=== PATIENT | female | born 1965 | race Caucasian/White ===

== ENCOUNTER 2018-06-22 15:58 | Inpatient (IN) | payer BC ==
[~2018-06-22] VITALS: Ht 172.7 cm; Wt 66.7 kg
--- NOTE | ~2018-06-22 | DS ---
[facility] [address], [place] [address] Draft ADMISSION DATE: 06/22/2018 DISCHARGE DATE: 06/25/2018 REASON FOR ADMISSION: This 53-year-old white woman has had pain in the right lower abdomen for the past 48 hours, and 2 days prior to that, vague abdominal pain with nausea and vomiting. She presented to the emergency room where she was thoroughly evaluated by Dr. Cordero and found to have generalized peritonitis with maximum tenderness at McBurney point. A CT scan was performed, which showed a large fecalith, severe periappendiceal inflammation, and significant inflammatory mass. She is admitted for further evaluation and care. PERTINENT PHYSICAL EXAMINATION: GENERAL: Showed a tall woman in marked discomfort. She did not appear systemically toxic, but quite uncomfortable. She is accompanied by family members. She had a temperature of 100.3, blood pressure 107/68, respirations 16, pulse 104. Mucous membranes are dry. CHEST: Clear. HEART: Regular. ABDOMEN: Nondistended with marked tenderness throughout the abdomen, most dominantly in the right lower abdomen. Marked guarding was noted. LABORATORY DATA: Her white count was 14.5, hematocrit 37.2, potassium 3.4, glucose 112, lipase 5. Urinalysis, trace leukocyte esterase. HOSPITAL COURSE: She was fluid resuscitated and given the acuity of her symptoms, she was taken to the operating room relatively late at night. At operation with relaxation of the abdominal wall palpation revealed a firm mass in the right lower quadrant. Laparoscopy was performed, which showed an intensely adherent cecum to the right lateral abdominal wall. This was taken down with blunt dissection revealing abscess. Abscess was drained and Gram stain and cultures were obtained of the fluid. The cultures ultimately did grow E coli. Sensitivities showed resistance to Bactrim, tetracycline, and ampicillin, but sensitive to amoxicillin clavulanate. A drain was placed in the abscess cavity and with difficulty complete appendectomy performed as well, confirming a gangrenous appendix with perforation. Postoperatively, she was markedly improved regarding her symptoms. She was maintained on antibiotic Zosyn and ultimately transitioned to Cipro and Flagyl. She had PATIENT NAME: NANETTE MARIE DISCHARGE SUMMARY DATE OF : 67 REPORT #: [id number] PHYSICIAN: REESE GARDUNO MD PCP: DEVON RILEY NP REPORT IS CONFIDENTIAL AND NOT TO BE RELEASED WITHOUT AUTHORIZATION [facility] [address], [place] [address] Draft progressive improvement in the drainage cleared largely, though was still slightly turbid at time of discharge, and on that basis, it will be left in place. She is tolerating a regular diet well. She is not too tolerant of any opiate medication and is finding best relief with plain Motrin. FOLLOWUP PLAN: She is to return to see me in a week or so, at which time the drain would likely be able to be removed so long as the drainage fluid is clear. She is asked to walk on a daily basis and to avoid lifting more than 20 pounds for the next 2 weeks. DISCHARGE MEDICATIONS: Include, 1. Cipro 500 mg p.o. b.i.d. #10. 2. Flagyl 250 mg p.o. t.i.d. #15. 3. Motrin 600 mg p.o. q.6 hours p.r.n. pain #60. To restart medications, 1. Marcella Thyroid 120 mg tablet at bedtime. 2. Cyclobenzaprine (Flexeril) 10 mg p.o. h.s. for muscle spasm. 3. Baclofen 5 mg p.o. 3 tabs h.s. for muscle spasm. DISCHARGE DIAGNOSES: 1. Intraabdominal abscess secondary to perforated appendicitis, status post laparoscopic drainage of abscess. 2. Perforated appendicitis, status post laparoscopic appendectomy. 3. Hypothyroidism. 4. History of back spasms. MD PRANAY Winchester/NOAHL /[id number] cc: Arthur Cordero Copies: ARTHUR CORDERO PATIENT NAME: NANETTE MARIE DISCHARGE SUMMARY DATE OF : 67 REPORT #: [id number] PHYSICIAN: REESE GARDUNO MD PCP: DEVON RILEY NP REPORT IS CONFIDENTIAL AND NOT TO BE RELEASED WITHOUT AUTHORIZATION [facility] [address] [place] [address] [place], [place] [address] Draft ~ PATIENT NAME: NANETTE MARIE DISCHARGE SUMMARY DATE OF : 67 REPORT #: [id number] PHYSICIAN: REESE GARDUNO MD PCP: DEVON RILEY NP REPORT IS CONFIDENTIAL AND NOT TO BE RELEASED WITHOUT AUTHORIZATION
--- NOTE | ~2018-06-22 | OR ---
[facility] [address] [place], [place] [address] Draft DATE OF OPERATION: 06/22/2018 SURGEON: Reese Garduno MD PREOPERATIVE DIAGNOSIS: Acute appendicitis with peritonitis. POSTOPERATIVE DIAGNOSES: 1. Abdominal abscess, posterolateral cecal area, dense adhesion of cecum to the anterolateral abdominal wall. 2. Gangrenous appendicitis with perforation. PROCEDURE: 1. Laparoscopic drainage of pericecal abscess. 2. Laparoscopic appendectomy. 3. Placement of drain with lavage of abdomen. ANESTHESIA: General endotracheal, Linda Brown, REPAIR SERVICE CLERK and local 20 mL of 0.25% Marcaine with epinephrine. DRAIN: 7 mm Alhaji. INDICATION: A 53-year-old white woman, who has had pain in the abdomen in the right lower area for the past 48 hours and two days prior to that, vague abdominal pain and nausea and vomiting, today is Saturday, notably. She presented to the emergency room, where she was thoroughly evaluated by Dr. Cordero, found to have generalized peritonitis, maximal tenderness at McBurney's point. A CT scan of the abdomen showed a fecalith, severe periappendiceal inflammation. She has been fluid resuscitated, given intravenous antibiotics, and is now to undergo appendectomy, preferred by laparoscopic approach. The risks of bleeding, infection, need for open procedure and other unforeseen complications were reviewed in detail. She understands and wished to proceed. FINDINGS: Once the patient was anesthetized, abdominal palpation revealed a dense mass in the right lower abdomen. This was highly concerning for probable abscess. Laparoscopic evaluation demonstrated densely adherent cecum to anterolateral peritoneal wall and this was taken down revealing an abscess with fecal material. No doubt related to perforated PATIENT NAME: NANETTE MARIE OPERATIVE REPORT DATE OF : 67 REPORT #: [id number] PHYSICIAN: RESEE GARDUNO MD PCP: NO PRIMARY CARE PHYSICIAN REPORT IS CONFIDENTIAL AND NOT TO BE RELEASED WITHOUT AUTHORIZATION [facility] [address] [place], [place] [address] Draft appendicitis. Ultimately, complete appendectomy was performed and the abscess cavity irrigated and a drain placed. The remaining abdomen was without obvious abnormality. The gallbladder was visible and somewhat distended, but not acutely inflamed. The liver was normal. DESCRIPTION OF PROCEDURE: The patient was brought to the operating room, given a general endotracheal anesthetic. Preoperative antibiotic Zosyn had been given as well as cefoxitin subsequently. A Kunz catheter was placed after abdominal palpation revealed a firm tennis ball size mass in the right lower abdomen. The abdomen was prepared with a chlorhexidine solution and draped sterilely. A circumumbilical scar was noted for prior surgery. An infraumbilical incision was made and using an open Nurys cannula technique, the peritoneal cavity was ultimately encountered allowing for pneumoperitoneum to a level of 14 mmHg with a Nurys balloon CT trocar. Intraabdominal inspection showed no sign of ascites or carcinomatosis. There was no sign of free purulence within the abdominal cavity. The liver and gallbladder were examined. The gallbladder was somewhat distended and subacutely inflamed probably in relation to her underlying problem rather than the gallbladder itself. Examination of the right lower abdomen showed a densely adherent cecum to the anterolateral abdominal wall. A 12 mm epigastric port was placed and the camera replaced to that site. Single hand manipulation in the right lower abdomen revealed densely adherent cecum to the abdominal wall and marked inflammatory change. A suprapubic 5 mm port was then placed under direct visualization allowing for two hand manipulation. With careful manipulation, the cecum was peeled away from the anterolateral abdominal wall revealing mucopurulent material consistent with abscess as well as gross fecal contamination. This material was suctioned free and not allowed to distribute throughout the abdomen. It was collected in a Luki tube allowing for Gram stain and culture. The cecum was more fully with blunt dissection and a fibrinous peel . First, the appendix could not be identified. Ultimately, the appendix was found to be adherent to the posterior wall of the cecum. This was gently dissected free with blunt dissection and further isolated using blunt and electrocautery dissection as well as the civil engineering project designer device. Ultimately, the appendix anatomy could be more fully discerned. The distal two-third of the appendix was completely infarcted with the area of perforation and no doubt accounting for the abscess that has thus been drained. Once the appendix was more clearly defined, it could be from the cecum was elevated and a mesoappendix was rather thickened. Further dissection more proximally on PATIENT NAME: NANETTE MARIE OPERATIVE REPORT DATE OF : 67 REPORT #: [id number] PHYSICIAN: REESE GARDUNO MD PCP: NO PRIMARY CARE PHYSICIAN REPORT IS CONFIDENTIAL AND NOT TO BE RELEASED WITHOUT AUTHORIZATION [facility] [address], [place] [address] Draft the appendix allowed ultimately for identification of the cecum. This portion of the appendix was completely viable. The appendiceal base was transected, flushed with the cecum. The mesentery to the appendix was more fully and ultimately Endo-MEGAN stapling device used to transect it as well. Good hemostasis was noted. A few clips were applied to certain areas of oozing. The appendix was withdrawn into the umbilical trocar and removed and passed for permanent pathology. Irrigation was undertaken in the retrocecal area. Excess irrigation fluid was suctioned free. Through the suprapubic port, a 7 mm flat Alhaji drain was placed and manipulated into the pelvis and the retrocecal area. The table was returned to a neutral position and excess irrigation fluid that had been administered was suctioned free. The drain was applied to the skin with 2-0 nylon suture and attached to bulb suction. The trocars were removed under direct visualization showing no sign of bleeding. The infraumbilical fascial incision was reapproximated with interrupted 0 Vicryl suture. All wounds were copiously irrigated with saline solution and 20 mL of 0.25% Marcaine with epinephrine was injected locally. The skin was closed with interrupted 3-0 Vicryl and Steri-Strips were applied. The patient was ultimately extubated and transferred to recovery in good condition having suffered no complications. Sponge, needle, and counts were reported as correct x3. MD PRANAY Winchester/ROLF /[id number] cc: Arthur Cordero Copies: ARTHUR CORDERO ~ PATIENT NAME: NANETTE MARIE OPERATIVE REPORT DATE OF : 67 REPORT #: [id number] PHYSICIAN: REESE GARDUNO MD PCP: NO PRIMARY CARE PHYSICIAN REPORT IS CONFIDENTIAL AND NOT TO BE RELEASED WITHOUT AUTHORIZATION
--- NOTE | ~2018-06-22 | HP ---
[facility] [address], [place] [address] Draft ADMISSION DATE: 06/22/2018 REASON FOR ADMISSION: Acute appendicitis. 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 She is accompanied by her sister, her mother, and niece. She began having problems on (today is Saturday night) and thought she had the flu. Things worsened with her nausea and vomiting. Then, she began having rather severe right lower abdominal pain which she thought was related to her retching. She presented to the emergency room today where she was evaluated by Dr. Cordero and found to have an elevated white count to 14.5 with normal electrolytes and urinalysis except for 5 white cells per high-power field. CT scan of the abdomen was performed, which showed marked inflammatory change in the region of the cecum, a relatively large fecalith and tip of the appendix considered quite inflamed. She is admitted for further evaluation and care for appendicitis. PAST MEDICAL HISTORY: Does include hysterectomy. Notably, she has a tattoo on her right lower abdomen strangely almost directly at [facility]. She would like to have it removed if possible actually. She is relatively healthy otherwise. She takes baclofen, cyclobenzaprine (Flexeril) and [place] Thyroid for hypothyroidism. She is considered to have allergy to hydrocodone. REVIEW OF SYSTEMS: She denies any shortness of breath or chest pain. Feels markedly thirsty. Still has nausea and some retching. Has significant lower abdominal pain. Denies any shortness of breath or chest pain. PHYSICAL EXAMINATION: GENERAL: Tall thin white woman who does look mildly toxic. She is accompanied by family members as described. VITAL SIGNS: Show a temperature of 100.3 up from 98.6, blood pressure 107/68, respirations 16, and pulse rate 104. HEENT: Mucous membranes are dry. Trachea is midline. CHEST: Clear. HEART: Regular. ABDOMEN: Nondistended. She has marked tenderness consistent with peritonitis upon PATIENT NAME: NANETTE MARIE HISTORY AND PHYSICAL DATE OF : 67 REPORT #: [id number] PHYSICIAN: REESE GARDUNO MD PCP: NO PRIMARY CARE PHYSICIAN REPORT IS CONFIDENTIAL AND NOT TO BE RELEASED WITHOUT AUTHORIZATION [facility] [address] [place], [place] [address] Draft palpation of the abdomen particularly in the right lower quadrant. Rovsing sign is markedly positive. EXTREMITIES: Showed no clubbing, cyanosis, or edema. LABORATORY STUDIES: Show white count of 14.5, hematocrit 37.2, and platelets 241,000. Chem profile, abnormal only for a potassium of 3.4, glucose is 112, lipase is 5. Urinalysis shows clear yellow urine, pH 6.0, urine bilirubin is positive, leukocyte esterase is trace, white cells 5 per high-powered field. Claims 2+. I have reviewed the CT scan in detail. Inflammatory changes are noted in the region of the cecum as previously described by the radiologist. ASSESSMENT: She has acute appendicitis and peritoneal findings are quite significant. She is somewhat dehydrated and fluid resuscitation is underway with additional bolus of fluid. She has already received a dose of Zosyn antibiotic and cefoxitin will be given as well. I discussed with the patient and her family the pathophysiology of appendicitis. Recommendation of treatment to include appendectomy preferably by laparoscopic approach. If an open procedure is required, she would be quite comfortable having the tattoo in her right lower abdomen removed concurrently which should be no problem. Most likely, this can be done laparoscopically, however. The risks of bleeding, infection, failure of diagnosis, missed diagnosis, need for other indicated procedures and so forth were all reviewed and well understood. MD PRANAY Winchester/ROLF /[id number] cc: Arthur Cordero Copies: ARTHUR CORDERO PATIENT NAME: NANETTE MARIE HISTORY AND PHYSICAL DATE OF : 67 REPORT #: [id number] PHYSICIAN: REESE GARDUNO MD PCP: NO PRIMARY CARE PHYSICIAN REPORT IS CONFIDENTIAL AND NOT TO BE RELEASED WITHOUT AUTHORIZATION [facility] [address] [facility] [place], [place] [address] Draft ~ PATIENT NAME: NANETTE MARIE HISTORY AND PHYSICAL DATE OF : 67 REPORT #: [id number] PHYSICIAN: REESE GARDUNO MD PCP: NO PRIMARY CARE PHYSICIAN REPORT IS CONFIDENTIAL AND NOT TO BE RELEASED WITHOUT AUTHORIZATION
[2018-06-22] MEDS ORDERED: ARMOUR THYROID120 MG PO (16:17)
[2018-06-22] MEDS ORDERED: CYCLOBENZAPRINE10 MG PO (16:17)
[2018-06-22] MEDS ORDERED: BACLOFEN5 MG PO (16:18)
--- NOTE | 2018-06-22 18:55 | NUR ---
PT ARRIVED INTO ROOM 115 ON M/S UNIT FROM THE ED AT THIS TIME 1854. PT VS AND CONDITION STABLE, BUT PT IS STATING SHE'S HAVING RLQ PAIN OF A 6 OUT OF 10. PT IS AWAKE AND A/O X4. ROOM AIR. PT IS RUNNING LOW GRADE FEVER OF 100.4 DEGREES. PT ORIENTED TO ROOM AND CALL LIGHT. ABOUT TO HAND OFF TO NOC SHIFT. BUT WILL SET UP FLUIDS D5LR @ 125 ML/HR.
--- NOTE | 2018-06-22 20:04 | NUR ---
IN ROOM TO COMPLETE ADMISSION ASSESSMENT, PT STATES PAIN AND NAUSEA ARE UNDER CONTROL AT THIS TIME. SHE HAS FAMILY VISITING IN THE ROOM. AND DENIES FURTHER NEEDS.
--- NOTE | 2018-06-22 21:00 | NUR ---
PT ARRIVED ON FLOOR AT 1855. PT WENT TO OR AT AROUND 2100.
--- NOTE | 2018-06-22 22:00 | NUR ---
BROUGHT 5 COFFEE'S , SUGAR AND CREAMER TO FAMILY MEMBERS IN PT'S ROON WHILE SHE IS IN SURGERY.
--- NOTE | 2018-06-22 22:10 | NUR ---
BROUGHT FAMILY MEMBER ANOTHER CUP OF COFFEE, DUE TO HER SPILLING IT.
--- NOTE | 2018-06-22 23:25 | NUR ---
06/22/182324 Nayana Buitrago 2312 PT ARRIVED IN PACU AWAKE WITH NO C/O'S. 2325 PT TALKING WITH STAFF.
--- NOTE | 2018-06-23 00:14 | NUR ---
VITALS DONE AND CHARTED. SCD'S HOOKED UP. COFFEE BROUGHT FOR FAMILY MEMBER.
--- NOTE | 2018-06-23 00:42 | NUR ---
PT ARRIVED FROM PACU AT 2350. PT IS AAOX4, PT DENIED PAIN AND N/V, ALL LOBES ARE CLEAR, ABD SOUNDS ARE ABSENT AT THIS TIME. PT IS SIPPING ON SOME ICE WATER AT THIS TIME. V/S ARE WDL. WILL CONTINUE TO MONITOR.
--- NOTE | 2018-06-23 00:54 | NUR ---
VITALS DONE AND CHARTED. BEDSIDE TABLE AND CALL LIGHT IN REACH. PT NEEDS NOTHING AT THIS TIME.
--- NOTE | 2018-06-23 02:02 | NUR ---
ASSISTED PT TO BATHROOM. PT ONLY URINATED 20ML OF BLOODY URINE. WILL CONTINUE TO MONITOR. 2MG OF IV MORPHINE GIVEN FOR PAIN 01/07. ONE MORE POST-OP V/S NEEDED SO FAR THEY WERE WDL. PT IS TOLERATING ICE WATER AND DENIES N/V.
--- NOTE | 2018-06-23 02:54 | NUR ---
VITALS DONE AND CHARTED. CALL LIGHT IN REACH. PT RESTING WHEN I LEFT.
--- NOTE | 2018-06-23 04:00 | NUR ---
PT IS SLEEPING. RR REGULAR, O2 SAtS >95% ON RA.
--- NOTE | 2018-06-23 05:30 | NUR ---
URINE OUTPUT SINCE ARRIVAL FROM PACU HAS BEEN 120ML TOTAL. BLADDER SCAN BRFORE VOIDING SHOWED 347ML. MD GARDUNO TO BE CALLED.
--- NOTE | 2018-06-23 06:42 | NUR ---
PT WENT TO OR AT AROUND 2100. PT CAME BACK FROM PACU AT 2355. V/S ARE WDL, ABD SOUNDS ARE ABSENT FOR THE MOST PART, ABD IS MILDLY DISTENDED AND TENDER TO TOUCH. PT IS NOT PASSING GAS SO FAR. HORACE-DRAIN SITED DRESSING HAD TO BE CHANGED X1 SO FAR. URINE OUTPUT SO FAR HAS NOT BEEN ADEQUATE AND MD GARDUNO WAS CALLED. ORDER FOR A LR 500ML BOLUS WAS GIVEN. WILL CONTINUE TO MONITOR. PT SO FAR HAS DENIED N/V AND IS TOLERATING CLEAR WELL IT SEEMS.
--- NOTE | 2018-06-23 08:42 | NUR ---
PT CURRENTLY LAYING IN BED WITH FAMILY AT THE BEDSIDE; PT IS CRYING, HOLDING;GUARDING HER STOMACH STATING HER RLQ PAIN IS AN 8 OUT OF 10, STATES THAT "THE PAIN HASN'T BEEN THIS BAD IN A WHILE." PRN MORPHINE GIVEN AND I WILL REASSESS SHORTLY IF NEEDING TO GIVE MORE MEDICATOIN. PRN MOTRIN AND TYLENOL INITIATED AT THIS TIME WELL FOR MORE ROLLER STAKER COVERAGE. OTHER MEDS GIVEN WELL AND ASSESSMENT COMPLETED. PT A/O X4. ROOM AIR. PT HAD SOME BUT MINIMAL URINE OUTPUT THIS AM AND FLUID BOLUS HAS BEEN COMPLETED. WILL CONTINUE TO MONITOR FOR INCREASED UOP; PT EDUCATED ON MONITORING URINE AND WILL INFORM STAFF WHEN AND IF SHE FEELS URGE TO VOID. D5LR RUNNING CONTINUOUSLY INTO PIV WITH NO ISSUES, WELL HER ZOSYN. PT NOT PASSING GAS YET, AND HER BOWEL SOUNDS ARE HYPOACTIVE. LAP SITES ON ABD ALL ARE WNL; HORACE DRAIN MID LOWER ABD COLLECTING SEROSANG, CLOUDY OUTPUT; GAUZE AROUND HORACE SITE SCANT DRAINAGE; JUST CHANGED BY NOC RN COMING OFF SHIFT. EDUCATION GIVEN ON IMPORTANCE OF AMBULATOIN AND MOBILITY POST OP; PT AGREES TO AMBULATE HALLWAY ONCE PAIN UNDER BETTER CONTROL. PT HAS NO FURTHER QUESTIONS AT THIS TIME; CALL LIGHT WITHIN REACH AND FALL PRECAUTIONS IN PLACE. WILL CONTINUE TO CLOSELY MONITOR TO CONTROL PAIN.
--- NOTE | 2018-06-23 09:17 | NUR ---
REASSESSMENT COMPLETED TO SEE IF MORPHINE HAS HELPED PT'S PAIN. SHE IS STILL CRYING, HOLDING HER STOMACH, AND STATES THAT HER PAIN HAS NOT IMPROVED AND IS STILL AN 8/10. I WILL GIVE ANOTHER DOSE BUT INSTEAD INCREASE TO 6 MG MORPHINE PER ORDER. MED GIVEN. WILL CONTINUE TO MONITOR.
--- NOTE | 2018-06-23 09:50 | NUR ---
PT APPEARS TO BE MUCH MORE COMFORTABLE AT THIS TIME. SHE ALSO STATES THAT HER PAIN HAS DECREASED TO A "4 OR A 5" OUT OF 10. PT IN BED WITH FAMILY STILL AT BEDSIDE. PT HAS SINCE VOIDED SINCE THIS AM AN ADEQUATE AMOUNT. UOP NO LONGER A CONCERN OF THIS RN AT THIS TIME HOWEVER I WILL CONTINUE TO MONITOR ADEQUATE OUTPUT. PT STATES SHE STILL DOESN'T FEEL READY TO AMBULATE BUT SAYS SHE WOULD LIKE TO AFTER SHE HAS SOME LUNCH. NO OTHER QUESTIONS OR CONCERNS AT THIS TIME. CALL LIGHT WITHIN REACH. WILL CONTINUE TO MONITOR.
--- NOTE | 2018-06-23 10:42 | NUR ---
PATIENT IN BED RESTING.FAMILY BEDSIDE. FRESHWATER GIVEN. CALL LIGHT IN REACH. NO FURTHER NEEDS AT THIS TIME.
--- NOTE | 2018-06-23 11:30 | NUR ---
THIS RN ASSISTED PT STAND BY ASSIST TO BATHROOM FOR PT TO URINATE; SHE MISSED MOST OF THE HAT BUT 100 CC WAS COLLECTED; CLEAR, YELLOW URINE. PT A LITTLE WEAK ON HER FEET BUT STEADY; STILL GUARDING HER STOMACH. AFTER URINATION A HAD PT SIT UP ON SIDE OF BED FOR LUNCH. 2 MG MORPHINE GIVEN DUE TO PT TO AMBULATE HALLWAY AFTER EATING. NO FURTHER QUESTIONS OR CONCERNS. CALL LIGHT WITHIN REACH. WILL CONTINUE TO MONITOR.
--- NOTE | 2018-06-23 12:15 | NUR ---
PT AMBULATING NUMEROUS LAPS AROUND THE UNIT AT THIS TIME WITH STAND BY ASSISTANCE PUSHING HER IV POLE. PT SMILING, STATING SHE "FEELS REALLY GOOD GETTING UP TO WALK." WILL CONTINUE TO MONITOR.
--- NOTE | 2018-06-23 12:57 | NUR ---
PT STILL REFUSING HER PO PERCOCET AT THIS TIME (SHE HAS BEEN THROUGHOUT THE SHIFT), STATING THAT HER "BODY DOESN'T HANDLE HYDROCODONE OR OXYCODONE WELL." I LOOKED IN HER ALLERGIES WHICH STATES "AGITATION" WITH HYDROCODONE. THIS RN HAS ASKED PHARMACIST TO COME SPEAK TO PT IN REGARDS TO PERCOCET. DANIELLE PHARMACIST STATED SHE WOULD DO THIS. AT THIS TIME I WILL GIVE ANOTHER 2 MG OF MORPHINE. PT IN BED STATING PAIN IS 6 OUT OF 10. NOT DUE FOR MOTRIN OR TYLENOL YET. CALL LIGHT WITHIN REACH. WILL CONTINUE TO MONITOR.
--- NOTE | 2018-06-23 13:57 | NUR ---
Medications reconciled with RX bottles and patient interview.
--- NOTE | 2018-06-23 14:02 | NUR ---
PATIENT IN BED RESTING. FAMILY IN ROOM. FRESHWATER GIVEN. CALL LIGHT IN REACH. NO FURTHER NEEDS AT THIS TIME.
--- NOTE | 2018-06-23 14:30 | NUR ---
PT APPREHENSIVE BUT STATES SHE IS WILLING TO TRY PERCOCET; ADMINISTERED AT THIS TIME. ASSESSMENT COMPLETED. LAP SITES WNL. HORACE WNL. PT IN BED AT THIS TIME. EDUCATION GIVEN ON EFFECTS OF MORE AMBULATION IN THE HALLWAY TODAY. NO FURTHER QUESTIONS OR CONCERNS. CALL LIGHT WITHIN REACH. WILL CONTINUE TO MONITOR.
--- NOTE | 2018-06-23 16:58 | NUR ---
PT IN BED WITH MANY VISITORS AT BEDSIDE. PT REQUESTS MORPHINE AGAIN AT THIS TIME. DR. GARDUNO JUST VISITED PT; THIS RN GAVE FURTHER EDUCATION ON IMPORTANCE OF TAKING PO PAIN MEDICATION WELL. PT NEEDS FREQUENT REINFORCEMENT OF THIS. SHE WAS REQUESTING "SOMETHING TO HELP PASS GAS." MORE EDUCATION GIVEN ON WHAT TO EXPECT POST OP WITH HYPOACTIVE BOWELS, AND NEEDING TO FREQUENTLY WALK, THAT POST OP TAKES TIME. SHE STATES HER UNDERSTANDING. PT DID TAKE A SECOND WALK IN THE HALLWAY THIS LAST HOUR. PAIN MEDS GIVEN. PT STATES PAIN IS A "6-7" BUT LAUGHING AND CONVERSING WITH VISITORS. CALL LIGHT WITHIN REACH. WILL CONTINUE TO MONITOR.
--- NOTE | 2018-06-23 18:41 | NUR ---
PT VS AND CONDITION STABLE TODAY. PT HAD PAIN CONTROL ISSUES THROUGHOUT THE SHIFT. FREQUENT EDUCATION REQUIRED AND REINFORCED ON POST OP PROCESS AND WHAT TO EXPECT. ENCOURAGE PRN PO PAIN MEDICATIONS. PT HAS INTERMITTENT ANXIETY BUT SHE IS COOPERATIVE. HYPOACTIVE BOWEL SOUNDS AND NO FLATUS YET-- EDUCATION GIVEN ON IMPORTANCE OF AMBULATION AND FREQUENT MOBILITY. SHE WALKED LAPS IN HALLWAY TWICE TODAY. LAP SITES ON ABD ARE WNL AND C/D/I WITH DRIED STERI STRIPS. LOWER MID ABD HORACE DRAIN IN PLACE WITH SMALL AMOUTNS OF SEROSANG DRAINAGE- GAUZE IN PLACE AROUND EXIT SITE. ROOM AIR. D5LR RUNNING CONTINUOUSLY AT 85 ML/HR. ADEQUATE UOP. SWITHCED TO PO ABX TODAY. STAND BY ASSIST. RESTING IN BED WITH VISITORS AT BEDSIDE. NO CURRENT QUESTIONS. CALL LIGHT WITHIN REACH. WILL CONTINUE TO MONITOR.
--- NOTE | 2018-06-23 19:34 | NUR ---
IN ROOM FOR REPORT, PT IS AWAKE IN BED WITH VISITOR IN THE ROOM. SHE DENIES NEEDS AT THIS TIME.
--- NOTE | 2018-06-23 22:01 | NUR ---
PT REQEUSTED PAIN MED FOR 6/10 PAIN, ABD. TRIED PERCOCET, BUT PT REFUSED, SO GAVE HER 2 MG MS.
--- NOTE | 2018-06-23 22:18 | NUR ---
IN ROOM TO ASSESS PT AND ADMINISTER MEDICATIONS. PT'S SON IS IN THE ROOM WITH HER. SHE STATES PAIN IS TOLERABLE AT THIS TIME SHE WAS JUST GIVEN IV MORPHINE. WE DISCUSSED THE NEED TO CONTROL PAIN WITH ORAL MEDICATIONS. LAP SITES ARE DRY AND WNL, HOARCE IS DRAINING SEROUS FLUID PINK IN COLOR. PT DENIES NEEDS AT THIS TIME. FRESH WATER AT BEDSIDE.
--- NOTE | 2018-06-24 00:44 | NUR ---
V/S AND I&O DONE AND CHARTED. PATIENT AMBULATED AROUND THE NURSES STATION X3.
--- NOTE | 2018-06-24 01:51 | NUR ---
ADMINISTERED TORADOL AND HELPED PT TO THE RESTROOM AND BACK TO BED. SHE DENIES FURTHER NEEDS AT THIS TIME. CALL LIGHT IS WITHIN REACH.
--- NOTE | 2018-06-24 06:38 | NUR ---
IN ROOM TO ADMINISTER PAIN MEDICATIONS. PT DENIES FURTHER NEEDS.
--- NOTE | 2018-06-24 07:05 | NUR ---
REPORT RECEIVED FROM AFIA DELGADO. PT RESTING SUPINE IN BED, REPORTS ABDOMINAL PAIN AND REQUESTED AND TO RECEIVE PRN OPIOD. H20 AND CALL LIGHT IN REACH AND PT DENIES FURTHER NEEDS.
--- NOTE | 2018-06-24 07:55 | NUR ---
PT SLEEPING AND APPEARS COMFORTABLE AT THIS TIME. WILL NOT AWAKE AND I WILL LET HER REST. CALL LIGHT WITHIN REACH. WILL RETURN THIS AM FOR MEDS AND ASSESSMENT SOON. WILL CONTINUE TO MONITOR.
--- NOTE | 2018-06-24 09:30 | NUR ---
PT RESTING IN BED AT THIS TIME. PT HAS C/O RLQ PAIN OF A 6 OUT OF 10. TORADOL AND OTHER SCHEDULED MEDS GIVEN AT THIS TIME. ASSESSMENT COMPLETED. PT PLEASANT, CALM AND COOPERATIVE. LAP SITES WNL WITH DRY/OLD DRAINAGE ON STERI STRIPS. HORACE DRAIN WNL WITH SMALL AMOUNT SEROSANG DRAINAGE. BULB COMPRESSED AND GAUZE IN PLACE AROUND HORACE. ABD MILDLY DISTENDED. PT STATES SHE'S PASSING SOME BUT MINIMAL FLATUS. D5LR @ 85 ML/HR RUNNING INTO PIV WITHOUT COMPLICATIONS. STAND BY ASSIST; PT STRONG AND STEADY ON FEET. PT HAS NO QUESTIONS OR CONCERNS AT THIS TIME. CALL LIGHT WITHIN REACH. FALL PRECAUTIONS IN PLACE. WILL CONTINUE TO MONITOR.
--- NOTE | 2018-06-24 10:15 | NUR ---
PT AMBULATING LAPS IN HALLWAY. STRONG AND STEADY ON FEET. GUARDING ABDOMEN SHE WALKS. WILL CONTINUE TO MONITOR.
--- NOTE | 2018-06-24 11:00 | NUR ---
PATIENT BACK TO BED FROM SHOWER. NEW GOWN PROVIDED. CALL LIGHT IN REACH. NO FURTHER NEEDS AT THIS TIME.
--- NOTE | 2018-06-24 11:58 | NUR ---
1150-MEDICATED PT WITH MS 2MG IV FOR C/O PAIN 03/09. DISSCUSSED WITH PT MEDICATION TAKEN PO AT HOME FOR PAIN RELIEF
--- NOTE | 2018-06-24 12:34 | NUR ---
PT RESTING IN BED WITH VISITOR AT THE BEDSIDE. PT REMAINS PLEASANT AND IN GOOD SPIRITS, BUT STATES SHE IS FEELING BLOATED AFTER HAVING AN EGG SALAD SANDWICH. PT STATES SHE'S HAVING SOME PAIN; TYLENOL GIVEN TO KEEP HER ON A REGULAR PO PAIN MED SCHEDULE. PT HAS NO FURTHER QUESTIONS OR CONCERNS AND STATES SHE WANTS TO AMBULATE IN A LITTLE WHILE. WILL CONTINUE TO MONITOR. CALL LIGHT WITHIN REACH.
--- NOTE | 2018-06-24 13:37 | NUR ---
PT SITTING UP IN BED WITH PILLOW ON ABDO. SHE IS ALERT, ORIENTED AND SUPPORTED BY HER MOTHER. PT IS PLEASANT AND BEGINNING TO FEEL ALITTLE BETTER. SHE MENTIONED THAT PAIN MEDS ARE A REAL PROBLEM WITH HER AND STAFF AND DR GARDUNO ARE WORKING TO COME UP WITH A PLAN THAT WILL WORK FOR PT. PT REQUESTED PRAYER, WILL FOLLOW NEEDED
--- NOTE | 2018-06-24 14:12 | NUR ---
PATIENT IN BED WATCHING TV. FRESHWATER GIVEN. CALL LIGHT IN REACH. NO FURTHER NEEDS AT THIS TIME.
--- NOTE | 2018-06-24 14:35 | NUR ---
PT RESTING IN BED WITH VISITOR AT BEDSIDE. PT HAS NO QUESTIONS OR CONCERNS. ASSESSMENT COMPLETED AND PT STATES SHE IS COMFORTABLE AT THIS TIME OTHER THAN THE TOLERABLE RLQ PAIN SHE IS HAVING. LAP SITES WNL; HORACE DRAIN WN; WITH NEW GAUZE PLACED AFTER HER SHOWER TODAY. CALL LIGHT WITHIN REACH. WILL CONTINUE TO MONITOR.
--- NOTE | 2018-06-24 16:20 | NUR ---
PT AMBULATING HALLWAY AT THIS TIME, MAKING LAPS. WILL CONTINUE TO MONITOR.
--- NOTE | 2018-06-24 17:24 | NUR ---
PATIENT REPORTED 8/10 PAIN. PRN AND SCHEDULED MEDICATION GIVEN (SEE MAR). PATIENT ASSISTED TO TOILET. INSTRUCTED TO CALL WHEN DONE. CALL LIGHT WITHIN REACH.
--- NOTE | 2018-06-24 17:54 | NUR ---
PATIENT SITTING UP IN BED WATCHING TV. FRESHWATER GIVEN. CALL LIGHT IN REACH. NO FURTHER NEEDS AT THIS TIME.
--- NOTE | 2018-06-24 18:01 | NUR ---
PT VS AND CONDITION STABLE TODAY. PT PLEASANT, CALM AND COOPERATIVE. PAIN UNDER CONTROL WITH PRN MEDICATION. NO N/V. LAP SITES WNL. HORACE WNL. PT STATES SHE IS PASSING "SOME" FLATUS. PT AMBULATED HALLWAY 2 OR 3 TIMES TODAY. CONTINUOUS FLUIDS RUNNING. ROOM AIR. NO QUESTIONS OR CONCERNS AT THIS TIME. PLAN FOR D/C TOMORROW. CALL LIGHT WITHIN REACH. WILL CONTINUE TO MONITOR.
--- NOTE | 2018-06-24 19:04 | NUR ---
PT RESTING SUPINE IN BED, PT REPORTS ABDOMINAL PAIN AND TO RECEIVE PRN IV OPIOD FROM DAYSHIFT RN. REPORT RECEIVED. CALL LIGHT AND H20 IN REACH AND PT DENIES FURTHER NEEDS.
--- NOTE | 2018-06-24 21:02 | NUR ---
PT REPORTS 7/10 ABDOMINAL PAIN. PT REQUESTED AND RECEIVED PRN IV MORPHINE 4MG. CALL LIGHT AND H2O IN REACH. FAMILY AT BEDSIDE. PT DENIES FURTHER CONCERNS OR REQUESTS. HORACE DRAIN EMPTIED OF 25CC'S OF SEROUS FLUID.
--- NOTE | 2018-06-24 23:01 | NUR ---
V/S AND I&O DONE AND CHARTED. ICE WATER REFILLED. WARM BLANKET PROVIDED.
--- NOTE | 2018-06-25 01:45 | NUR ---
PT RESTING SUPINE IN BED, RESPIRATIONS EVEN AND UNLABORED. PT APPEARS TO BE SLEEPING COMFORTABLY. PT ALERT TO VOICE. ASSESSMENT COMPLETED. BT'S ACTIVE X4. PT DENIES NAUSEA AND STATES PAIN IS TOLERABLE. CALL LIGHT AND H20 IN REACH.
--- NOTE | 2018-06-25 03:50 | NUR ---
PT RESTING IN BED, EYES CLOSED AND RESPIRATIONS EVEN AND UNLBAORED. PT APPEARS TO BE SLEEPING COMFORTABLY. CALL LIGHT AND H20 IN REACH.
--- NOTE | 2018-06-25 06:40 | NUR ---
PT REPORTS 6/10 ABD PAIN REQUESTED AND RECEIVED PRN IV MORPHINE AND PO TYLENOL. PT AASLO ASSISTED TO RESTROOM AND GIVEN CLEAN GOWN. [facility]. SCD'S REAPPLIED AND IV FLUIDS INFUSING. CALL LIGHT AND H20 IN [facility].
--- NOTE | 2018-06-25 06:51 | NUR ---
PT APPEARED TO HAVE SLEPT WELL THROUGH MOST OF SHIFT WITH SEVERAL EPISODES [facility] BREAKTHROUGH PAIN WELL CONTROLLED WITH IV MORPHINE. PT HAS D5LR AT 85ML/HR. TO LFA IV. PT STATES NO BM SINCE . BT'S ACTIVE AND PT DENIES NAUSEA. PT REPORTS AGITATION WITH PERCOCET BUT TOLORATES MORPHINE. PT HAS BEEN AFEBRILE WITH VSS ADN VOIDING QS CLEAR YELLOW URINE. PT STATES SHE HOPES WO BE DISCHARGED TODAY AND WOULD LIKE PO TORADOL AT DISCHARGE IF POSSIBLE.
--- NOTE | 2018-06-25 07:30 | NUR ---
PATIENT REPORT RECEIVED FROM FAVIO OREILLY, PATIENT IS AWAKE AND DENYING PAIN AT THIS TIME HORACE PRESENT WITH SERROUS DRAINAGE PRESENT. DRESSING TO ABDOMEN CDI. BOWEL TONES PRESENT. SHE IS PASSING GAS BUT HAS NOT HAD A BOWEL MOVEMENT YET.
--- NOTE | 2018-06-25 08:47 | NUR ---
0847 PATIENTS PAIN CURRENTLY AT A 02/06, PATIENT REQUESTING PAIN MEDICATION AT THIS TIME, MOTRIN 600MG GIVEN PO NOW, AM MEDICATION GIVEN, SHE DENIES HAVING A BM STILL, SHE HAS BEEN UP TO THE BATHROOM AND IS VOIDING WITHOUT ANY DIFFICULTIES. SHE IS STEADY ON HER FEET.
--- NOTE | 2018-06-25 10:40 | NUR ---
PATIENT UP AMBULATING IN THE HALLWAY WITH PERINATAL EDUCATOR
--- NOTE | 2018-06-25 11:24 | NUR ---
PATIENT WAS IN BED RESTING, FACE WASHED, BREAKFAST WAS IN ROOM, FRESH WATER WAS GIVEN,. AFTER BREAFAST PATIENT AND LOAD OUT WORKER WALKED TO BATHROOM, PATIENT DID HER ADLS, WE WALKED AROUND THE [address]ANCHE[address] WAY 4 LAPS, BACK TO ROOM, PATIENT BACK TO BED, FAMILY MEMBER IN THE ROOM. NO OTHER NEEDS AT THIS TIME.
--- NOTE | 2018-06-25 12:14 | NUR ---
DOCTOR SHAAN IN THE ROOM TALKING TO THE PATIENT, SHE WILL GO HOME WITH HER HORACE AT THIS TIME, INSTRUCTION GIVEN TO HER REGARDING HORACE CARE AT HOME.
[2018-06-25] MEDS ORDERED: IBUPROFEN600 MG PO (12:48)
[2018-06-25] MEDS ORDERED: CIPROFLOXACIN500 MG PO (12:48)
[2018-06-25] MEDS ORDERED: METRONIDAZOLE250 MG PO (12:49)
[2018-06-25] MEDS ORDERED: THYROID120 MG PO (13:06)
--- NOTE | 2018-06-25 13:42 | NUR ---
PT IS ALERT, ORIENTED AND DESIRING TO BE DC'D. HAD A VERY INSIGHTFUL VISIT WITH PT THAT SHED SOME LIGHT ON HER PAIN MED ISSUES. SPENT QUITE A BIT OF TIME DEBRIEFING AND CARING FOR PT. PT'S MOTHER CAME AND THEY ARE VERY CLOSE. HAD PRAYER WITH BOTH, AND WILL FOLLOW NEEDED
== END 2018-06-25 13:27 | disposition home or self-care (01) | DRG 340 ==
LOC: ED 15:58 → MS 15:59
PROVIDERS: ADMIT Surgery
PROC: 0DTJ4ZZ Resection of Appendix, Percutaneous Endoscopic Approach (ICD-10-PCS; principal; 2018-06-22 21:20)
DX: K35.3 Acute appendicitis with localized peritonitis (principal); K38.1 Appendicular concretions; E03.9 Hypothyroidism, unspecified; Z79.899 Other long term (current) drug therapy; Z88.5 Allergy status to narcotic agent
CPT/HCPCS: 00840; 36415; 74177; 80053; 81001; 83690; 85025; 94762; 96361; 96365; 96375; 96376; 99285; G0378; J0694; J1100; J1170; J1644; J1885; J2270; J2405; J2543; J2704; J3010; J7030; J7120; Q9967

== ENCOUNTER 2018-10-27 14:03 | Emergency (ER) | payer BC ==
[~2018-10-27] VITALS: Ht 177.8 cm; Wt 66.7 kg
[~2018-10-27 14:03] MED LIST: ARMOUR THYROID120 MG PO; BACLOFEN5 MG PO; CIPROFLOXACIN500 MG PO; CYCLOBENZAPRINE10 MG PO; IBUPROFEN600 MG PO; METRONIDAZOLE250 MG PO; THYROID120 MG PO
[2018-10-27] MEDS ORDERED: PHENERGAN50 MG PR (16:20)
[2018-10-27] MEDS ORDERED: PROMETHAZINE12.5 M1 PO (17:24)
== END 2018-10-27 16:55 | disposition home or self-care (01) ==
LOC: ED 14:03
DX: R11.2 Nausea with vomiting, unspecified (principal); E03.9 Hypothyroidism, unspecified; Z87.891 Personal history of nicotine dependence; Z88.5 Allergy status to narcotic agent; Z79.899 Other long term (current) drug therapy
CPT/HCPCS: 81001; 96361; 96374; 99284-25; J2550; J7030